=== PATIENT | female | born 1975 | race Two or more races ===

== ENCOUNTER → 2017-11-25 | Outpatient (CLI) | payer MEDICARE, MEDICAID ==
[~2017-11-25] MED LIST: GADOBUTROL 7.5 MMOL/7.5 ML PFS ONE
== END | disposition home or self-care (01) ==
LOC: RAD 11:52
PROVIDERS: ATTEND Psychiatry & Neurology Neurology
DX: G91.0 Communicating hydrocephalus (principal)
CPT/HCPCS: 70553; A9585